=== PATIENT | female | born 1970 | race Caucasian/White ===

== ENCOUNTER 2021-01-28 20:36 | Emergency (ER) | payer MEDICAID ==
[~2021-01-28] VITALS: Ht 154.9 cm; Wt 90.7 kg
[2021-01-28 20:40] VITALS: BP_SYST 155
[2021-01-29] MEDS ORDERED: LORazepam 1 MG TABLET PO ONE (00:15)
[2021-01-29 00:33] VITALS: BP_SYST 145
== END 2021-01-29 00:33 | disposition home or self-care (01) ==
LOC: SED 20:36
DX: F41.9 Anxiety disorder, unspecified (principal); R55 Syncope and collapse
CPT/HCPCS: 81025; 82962; 93005; 99283

== ENCOUNTER 2021-09-14 22:35 | Emergency (ER) | payer MEDICAID ==
[~2021-09-14] VITALS: Ht 172.7 cm; Wt 70.8 kg
[2021-09-14 22:40] VITALS: BP_SYST 140
[2021-09-15] MEDS ORDERED: BALANCED SALT IRRIG SOLN 15 ML IO ONE (03:00)
[2021-09-15] MEDS ORDERED: TETRACAINE HCL/PF 0.5% OPHTHALMIC DROPS 4 ML OP ONE (03:00)
[2021-09-15] MEDS ORDERED: FLUORESCEIN SODIUM 1 MG OPHTHALMIC STRIP OP ONE (03:00)
[2021-09-15] MEDS ORDERED: OLOP5DRO27 LEFT EYE (03:26)
[2021-09-15] MEDS ORDERED: MOXI3DRO OP (03:26)
[2021-09-15 03:44] VITALS: BP_SYST 139
== END 2021-09-15 03:44 | disposition home or self-care (01) ==
LOC: SED 22:35
DX: S05.02XA Injury of conjunctiva and corneal abrasion without foreign body, left eye, initial encounter (principal); H10.32 Unspecified acute conjunctivitis, left eye; X58.XXXA Exposure to other specified factors, initial encounter; Y93.89 Activity, other specified; Y92.89 Other specified places as the place of occurrence of the external cause; Y99.8 Other external cause status
CPT/HCPCS: 99283